=== PATIENT | female | born 2000 | race African-American/Black ===

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

== ENCOUNTER 2019-04-09 11:19 | Inpatient (IN) | payer OTHER ==
--- NOTE | 2019-04-09 11:57 | US ---
EXAMINATION TYPE: US OB >= 14 wk fetus DATE OF EXAM: 04/09/2019 COMPARISON: None CLINICAL HISTORY: no heart tones in office No heart tones at Dr's office TECHNIQUE: Transabdominal (TA) GESTATIONAL AGE / DATING Physician Established: (31 weeks/2 days) EDC: 06/09/2019 Dates by LMP: Unkown Dates by First Scan: No prior Dates by Current Scan: (22 weeks/1 days) EDC: 08/12/2019 SURVEY IUP: Single PLACENTA: Posterior PREVIA: No Previa LORETA: 4.1 cm Oligohydramnios CERVICAL LENGTH (transabdominal: norm > 3.0cm): 2.4 cm BIOMETRY PRESENTATION: Breech BPD: 3.9 cm 18 weeks / 0 days HC: 19.9 cm 22 weeks / 1 days AC: 16.7 cm 21 weeks / 5 days FL: 4.8 cm 26 weeks / 4 days ESTIMATED WEIGHT IN GRAMS: 580 grams ESTIMATED WEIGHT IN LBS/OZ: 1 lbs. 4 oz. WEIGHT PERCENTAGE BASED ON ESTABLISHED DATES: 2% HC/AC: 1.19 Normal FL/AC: 29 Abnormal HEART RATE: No heart tones detected Demise IMPRESSION: No heart tones are identified correlate for demise.
[2019-04-09] MEDS ORDERED: LIDOCAINE 0.5% (PF) 5 MG/ML (50 ML SDV) SQ PRN (12:32)
[2019-04-09] MEDS ORDERED: TERBUTALINE 1 MG/ML VIAL SQ PRN (12:32)
[2019-04-09] MEDS ORDERED: OXYTOCIN 10 UNIT/ML 1 ML VIAL IM PRN (12:32)
[2019-04-09] MEDS ORDERED: CARBOPROST TROMETHAMINE 250 MCG/ML 1 ML AMP IM PRN (12:32)
[2019-04-09] MEDS ORDERED: METHYLERGONOVINE 0.2 MG/ML 1 ML AMP IM PRN (12:32)
--- NOTE | 2019-04-09 12:40 | P.HPOB ---
History of Present Illness H&P Date: 04/09/19 Chief Complaint: demise Criss is a 18-year-old at 31 weeks gestation based on a proximally 19 week ultrasound and actually she had an ultrasound earlier in [place] that said her due date was May 302018. She was seen in the office today for her normal visit. Prior to today she had not had any blood work done and otherwise she had voiced no significant complaints at her previous visit. Today I was unable to obtain cardiac activity with the Doppler and then she notified me that she had not felt the baby move in at least a week but did not call or notify any of our office, labor and delivery, or Her family. I did do an ultrasound verifying no cardiac activity and sent to labor and delivery where an official ultrasound was done verifying demise. Baby is in breech presentation at this time with very low fluid. She seems at least relatively understanding of the current circumstances her family is understandably upset at what is going on at this moment. She and I have talked at length about what options we have whether to do a laminaria inserted induction the morning or to initiate Cytotec induction versus potentially doing section, her family is very insistent that she have a section but I did warn him that there is a good chance we would have to do a vertical incision on the uterus or classical incision which would require her to have section from this point forward and will increase her complication risks. It is unclear to me what happened and why she had a demise. I reviewed the ultrasound from February 17 which had her dates essentially correct and a good amniotic fluid volume. She was seen on March 06 for normal visit at that time heart rate was in the 130s and she her uterus was measuring approximately 25 weeks' size which is consistent with her 26 week visit. At that time she voices no concerns or complaints and was feeling well. We will do a urine drug screen as a precaution to make sure that it that is normal as well as draw all of her labs are not previously been done to see if there are some other reason why we may have to this finding. All questions are answered for her at this time. On physical exam vital signs are stable and afebrile. Heart is regular, lungs are Clear. Abdomen is soft uterus is small there is no contractions or pain within her uterus. Cervix is examined it is closed thick and high. Assessment demise at approximately 30 weeks. Plan likely induction of labor but there is still a possibility that we will need to do a section to deliver the baby. Past Medical History Past Medical History: No Reported History History of Any Multi-Drug Resistant Organisms: None Reported Past Surgical History: No Surgical Hx Reported Smoking Status: Never smoker Medications and Allergies Home Medications Medication Instructions Recorded Confirmed Type Vitamin C/Biotin [Hair, Skin and 1 tab PO DAILY 05/29/18 05/29/18 History Nails] Allergies Allergy/AdvReac Type Severity Reaction Status Date / Time No Known Allergies Allergy Verified 05/29/18 10:13 Exam Osteopathic Statement: *. No significant issues noted on an osteopathic structural exam other than those noted in the History and Physical/Consult. Intake and Output 04/08/19 04/09/19 04/09/19 22:59 06:59 14:59 Other: Weight 70.307 kg
[2019-04-09] MEDS: LACTATED RINGERS 1,000 ML IV SCH ×2 (13:12→21:16)
[2019-04-09] MEDS: MISOPROSTOL 25 MCG TAB PO SCH ×2 (13:12→17:07)
[2019-04-09] MEDS: AMPICILLIN 1,000 MG in SODIUM CHLORIDE 0.9% 50 ML IVPB SCH ×3 (13:12→21:15)
[2019-04-09 13:21] LABS: Basophils # (A) 0.1 k/uL (0-0.2); Basophils % (A) 1 %; Eosinophils # (A) 0.2 k/uL (0-0.7); Eosinophils % (A) 2 %; HCT 37.6 % (34.0-46.0); HGB 12.3 gm/dL (11.4-16.0); Lymphocytes # (A) 1.5 k/uL (1.0-4.8); Lymphocytes % (A) 16 %; MCH 30.9 pg (25.0-35.0); MCHC 32.6 g/dL (31.0-37.0); MCV 94.7 fL (80.0-100.0); Mean Platelet Volume 7.5; Monocytes # (A) 0.4 k/uL (0-1.0); Monocytes % (A) 4 %; Neutrophils # (A) 7.5 k/uL (1.3-7.7); Neutrophils % (A) 76 %; Platelet Count 280 k/uL (150-450); RBC 3.97 m/uL (3.80-5.40); RDW 13.6 % (11.5-15.5); WBC 9.9 k/uL (4.0-11.0)
[2019-04-09 13:24] LABS: Appearance,Urine Clear (Clear); Bilirubin,Urine Negative (Negative); Blood,Urine Negative (Negative); Color,Urine Yellow; Glucose,Urine (UA) Negative (Negative); Ketones,Urine Negative (Negative); Leukocyte Esterase,Urine Negative (Negative); Nitrite,Urine Negative (Negative); Protein,Urine Trace (Negative); Specific Gravity,Urine 1.029 (1.001-1.035); Urobilinogen,Urine <2.0 mg/dL (<2.0)
[2019-04-09 13:38] LABS: Amphetamine Screen,Urine Not Detected (NotDetected); Barbiturate Screen,Urine Not Detected (NotDetected); Benzodiazepines Screen,Urine Not Detected (NotDetected); Cocaine Screen,Urine Not Detected (NotDetected); Methadone Screen, Urine Not Detected (NotDetected); Opiate Screen,Urine Not Detected (NotDetected); Oxycodone Screen, Urine Not Detected (NotDetected); Phencyclidine Screen,Urine Not Detected (NotDetected); Tricyclic Antidepressant,Urine Not Detected (NotDetected); Urn Cannabinoid Scrn Not Detected (NotDetected)
[2019-04-09 14:15] VITALS: BMI 24.3
--- NOTE | 2019-04-09 16:22 | P.PN ---
Progress Note - Text Progress Note Date: 04/09/19 Criss seen and evaluated overall she is doing well considering the circumstances. She is feeling some slight cramping but nothing more this time she is due for another dose of Cytotec in about 1 hour. We will sign out to Dr. Arias for the evening.
--- NOTE | 2019-04-09 21:19 | P.PN ---
Progress Note - Text Progress Note Date: 04/09/19 I was called to speak with the family in regards to questions for delivery. Apparently patient's family members are requesting delivery by section at this time. Please see Dr. Medina's history and physical and progress note on his admission earlier today. Patient is approximately 30 weeks by previous dating ultrasounds however this fetus is measuring only 22 weeks' size on today's ultrasound, with a demise. I explained to the patient and the family the significant risks of doing a hysterotomy for delivery including problems with future pregnancies, notwithstanding the risk of surgery itself. Certainly it would be better for the patient to proceed with a induction of labor and vaginal delivery. They had questions as to if the patient was in any danger at this time and I reassured them that there is no evidence of infection or maternal compromise. Patient's white blood cell count was normal and she is afebrile. I am going to send some coagulation factors and a repeat CBC for tomorrow morning. Since the management plan has already been set place between the patient and Dr. Medina I advised her at this time to stop the induction if this is not what she wants to do and rest this evening and she can rediscuss delivery options with him tomorrow. Patient's family and the patient herself understand. The patient has requested to stop the induction at this time. They have requested a repeat ultrasound to double check that there is actually a demise and I did order this for tomorrow morning. I will allow the patient to eat up until midnight. We will continue the antibiotics as ordered. I believe I answered all the patient's questions to the best of my ability and they seemed to understand the clinical situation.
[2019-04-10] MEDS: AMPICILLIN 1,000 MG in SODIUM CHLORIDE 0.9% 50 ML IVPB SCH ×3 (00:59→08:53)
[2019-04-10 06:12] LABS: Basophils # (A) 0.1 k/uL (0-0.2); Basophils % (A) 1 %; Eosinophils # (A) 0.3 k/uL (0-0.7); Eosinophils % (A) 3 %; HGB 11.2 gm/dL (11.4-16.0); Lymphocytes # (A) 1.7 k/uL (1.0-4.8); Lymphocytes % (A) 19 %; MCHC 33.8 g/dL (31.0-37.0); MCV 91.7 fL (80.0-100.0); Mean Platelet Volume 7.7; Monocytes # (A) 0.6 k/uL (0-1.0); Monocytes % (A) 6 %; Neutrophils # (A) 6.3 k/uL (1.3-7.7); Neutrophils % (A) 69 %; Platelet Count 239 k/uL (150-450); RDW 13.3 % (11.5-15.5); WBC 9.1 k/uL (4.0-11.0)
[2019-04-10 06:20] LABS: INR 0.9 (<1.2); Partial Thromboplastin Time 22.5 sec (22.0-30.0); Prothrombin Time 9.5 sec (9.0-12.0)
--- NOTE | 2019-04-10 07:39 | US ---
EXAMINATION TYPE: US OB limited DATE OF EXAM: 04/10/2019 COMPARISON: 04/09/2019 CLINICAL HISTORY: 18-year-old female Reconfirm demise EXAM PERFORMED: Transabdominal (TA) Findings: HEART RATE: No heart tones detected by multiple attempts with color and power doppler. Reconfirmed demise IMPRESSION: Color and power Doppler utilized to assess for heart tones. No heart tones detected. demise is confirmed.
--- NOTE | 2019-04-10 09:36 | P.PN ---
Progress Note - Text Progress Note Date: 04/10/19 Criss seen and evaluated this morning. She not have much in the way of contractions or cramping yesterday with oral Cytotec. reviewed from last night's events. After another discussion with her we are planning to continue to move forward with attempt at vaginal delivery due to increased risk for classical if she were to need a section. Due to the fact that she not have much in with contractions we'll avoid and allow her to have clear liquid breakfast and then changed to nothing by mouth again once we started the Cytotec. We'll change the Cytotec to vaginally and increase the dose as it appears that that her uterus and size of fetus may be more district representative of a less than 28 week since she had no real response to the initial Cytotec. We'll follow hospital protocol on Cytotec dosing. Other questions are answered for her at this time and she is otherwise stable at this time. Vital signs are stable and she is afebrile. All questions were answered for her at this time and her family.
[2019-04-10] MEDS: MISOPROSTOL 200 MCG TAB VAGINAL SCH ×3 (10:20→18:31)
[2019-04-10] MEDS ORDERED: MISOPROSTOL 200 MCG TAB VAGINAL SCH (12:00)
[2019-04-10] MEDS: LACTATED RINGERS 1,000 ML IV SCH ×3 (12:30→22:45)
[2019-04-10 21:51] VITALS: RESP 15
[2019-04-10] MEDS ORDERED: ACETAMINOPHEN TAB 325 MG TAB PO PRN (22:00)
[2019-04-10] MEDS ORDERED: SIMETHICONE 80 MG CHEWABLE PO PRN (22:00)
[2019-04-10] MEDS ORDERED: diphenhydrAMINE 50 MG CAP PO PRN (22:00)
[2019-04-10] MEDS ORDERED: ZOLPIDEM 5 MG TAB PO PRN (22:00)
[2019-04-10] MEDS ORDERED: WITCH HAZEL 1 EACH MED..PAD TOPICAL PRN (22:00)
[2019-04-10] MEDS ORDERED: HYDROCORTISONE 2.5% RECTAL CREAM 30 GM TUBE RECTAL PRN (22:00)
[2019-04-10] MEDS ORDERED: IBUPROFEN 600 MG TAB PO PRN (22:00)
[2019-04-10] MEDS ORDERED: LANOLIN CREAM 5 GM TUBE TOPICAL PRN (22:00)
[2019-04-10] MEDS ORDERED: BENZOCAINE/MENTHOL SPRAY 1 GM/SPRAY AEROSOL TOPICAL PRN (22:00)
[2019-04-10] MEDS ORDERED: diphenhydrAMINE 50 MG/ML 1 ML VIAL IVP PRN ×2 (22:00)
[2019-04-10] MEDS ORDERED: OXYTOCIN 20 UNITS/1000 ML NS 1,000 ML IV SCH (22:00)
[2019-04-10] MEDS ORDERED: diphenhydrAMINE 25 MG CAP PO PRN (22:00)
[2019-04-11 07:10] LABS: Basophils # (A) 0.1 k/uL (0-0.2); Basophils % (A) 1 %; Eosinophils # (A) 0.1 k/uL (0-0.7); Eosinophils % (A) 1 %; HGB 10.6 gm/dL (11.4-16.0); Lymphocytes # (A) 1.5 k/uL (1.0-4.8); Lymphocytes % (A) 13 %; MCH 30.3 pg (25.0-35.0); MCHC 32.9 g/dL (31.0-37.0); MCV 92.1 fL (80.0-100.0); Mean Platelet Volume 7.7; Monocytes # (A) 0.5 k/uL (0-1.0); Monocytes % (A) 5 %; Neutrophils % (A) 79 %; Platelet Count 222 k/uL (150-450); RBC 3.48 m/uL (3.80-5.40); RDW 13.7 % (11.5-15.5); WBC 11.5 k/uL (4.0-11.0)
[2019-04-11] MEDS ORDERED: SENNOSIDES-DOCUSATE SODIUM 1 EACH TAB PO SCH (08:00)
--- NOTE | 2019-04-11 08:21 | P.DS ---
Providers Date of admission: 04/09/19 12:33 Expected date of discharge: 04/11/19 Attending physician: Siddharth Medina Primary care physician: Stated None Hospital Course: Criss seen and evaluated. She was seen last evening by myself at approximately 5:00 beginning Cramping and contractions from the Cytotec, and ultimately she delivered a nonviable baby at approximately 945 last night with passage of placenta as well Dr. Hernandez was on-call. No bleeding was noted following the delivery in she was stable through the night. In seeing her this morning she is requesting discharge home. Her vital signs are stable and afebrile. Heart regular, lungs clear, extremities without pain. She has a minimal elevation of white blood cell count 11.5 but received 24 hours of IV antibiotics during the initial day of induction. No other signs or symptoms of infection. She is aware to call for any high temperatures, heavy bleeding, or severe pain. She will follow up with me in approximately 1-2 weeks for reevaluation and at that time pathology should be back on the demise. All the questions are answered for her at this time. Her heart is regular, lungs are clear abdomen soft positive bowel sounds are noted and her lochia is currently reported light. Assessment post heart and day 1 from a miscarriage delivery plan as above. Patient Condition at Discharge: Good Plan - Discharge Summary New Discharge Prescriptions: No Action Vitamin C/Biotin [Hair, Skin and Nails] 1 tab PO DAILY Discharge Medication List Vitamin C/Biotin [Hair, Skin and Nails] 1 tab PO DAILY 05/29/18 [History]
[2019-04-11 08:32] VITALS: BP 93/48; PULSE 72; TEMP 97.8
== END 2019-04-11 11:40 | disposition home or self-care (01) | DRG 807 ==
LOC: FBPOP 11:19 → 4FBP 12:33
PROVIDERS: ADMIT Obstetrics & Gynecology; ATTEND Obstetrics & Gynecology
PROC: 3E0P7VZ Introduction of Hormone into Female Reproductive, Via Natural or Artificial Opening (ICD-10-PCS; principal; 2019-04-09)
PROC: 10E0XZZ Delivery of Products of Conception, External Approach (ICD-10-PCS; principal; 2019-04-09)
DX: O36.4XX0 Maternal care for intrauterine death, not applicable or unspecified (principal); Z37.1 Single stillbirth; O32.1XX0 Maternal care for breech presentation, not applicable or unspecified; Z3A.31 31 weeks gestation of pregnancy
CPT/HCPCS: 76805; 76815; 80306; 81003; 82947; 85025; 85384; 85610; 85730; 86762; 86780; 86850; 86900; 86901; 87340

== ENCOUNTER 2019-12-08 11:36 | Inpatient (IN) | payer MEDICAID, OTHER ==
--- NOTE | 2019-12-08 11:56 | ED ---
General Adult HPI - General Chief complaint: Psychiatric Symptoms Stated complaint: mental health Time Seen by Provider: 12/08/19 11:42 Source: patient, RN notes reviewed, old records reviewed Mode of arrival: ambulatory Limitations: no limitations - History of Present Illness Initial comments: 19-year-old female brought from the psychiatrist's office for mental health evaluation. Review the medical record reveals this patient has auditory hallucination, she has religiously preoccupied, she's had thoughts of harming herself and others. She will answer simple questions at the time my evaluation but is reluctant to give a full history. She denies pain complaints. She denies suicide attempt or self-harm. - Related Data Home Medications Medication Instructions Recorded Confirmed No Known Home Medications 12/08/19 12/08/19 Allergies Allergy/AdvReac Type Severity Reaction Status Date / Time No Known Allergies Allergy Verified 12/08/19 12:46 Review of Systems ROS Statement: Those systems with pertinent positive or pertinent negative responses have been documented in the HPI. ROS Other: All systems not noted in ROS Statement are negative. Past Medical History Past Medical History: No Reported History History of Any Multi-Drug Resistant Organisms: None Reported Past Surgical History: No Surgical Hx Reported Past Anesthesia/Blood Transfusion Reactions: No Reported Reaction Past Psychological History: No Psychological Hx Reported Smoking Status: Never smoker Past Alcohol Use History: None Reported Past Drug Use History: Marijuana - Past Family History Mother History Unknown: Yes General Exam Limitations: no limitations General appearance: alert, in no apparent distress Head exam: Present: atraumatic, normocephalic Eye exam: Present: normal appearance, PERRL ENT exam: Present: normal exam Neck exam: Present: normal inspection. Absent: tenderness, meningismus Respiratory exam: Present: normal lung sounds bilaterally. Absent: respiratory distress, wheezes Cardiovascular Exam: Present: regular rate, normal rhythm GI/Abdominal exam: Present: soft. Absent: distended, tenderness Extremities exam: Present: normal inspection, full ROM Neurological exam: Present: alert, oriented X3, CN II-XII intact. Absent: motor sensory deficit Psychiatric exam: Present: flat affect, suicidal ideation Skin exam: Present: warm, dry, intact. Absent: cyanosis, diaphoretic Course Vital Signs 12/08/19 11:38 Temperature 98.2 F Pulse Rate 80 Respiratory 16 Rate Blood Pressure 144/90 O2 Sat by Pulse 99 Oximetry Medical Decision Making - Medical Decision Making 19-year-old female presenting with altered sensation, suicidal ideation. Patient medically cleared, evaluated by EPS, will be admitted for further psychiatric evaluation and treatment. She will be admitted to this institution. - Lab Data Lab Results 12/08/19 Range/Units 12:17 Urine Opiates Screen Not Detected (NotDetected) Ur Oxycodone Screen Not Detected (NotDetected) Urine Methadone Screen Not Detected (NotDetected) Ur Propoxyphene Screen Not Detected (NotDetected) Ur Barbiturates Screen Not Detected (NotDetected) U Tricyclic Antidepress Not Detected (NotDetected) Ur Phencyclidine Scrn Not Detected (NotDetected) Ur Amphetamines Screen Not Detected (NotDetected) U Methamphetamines Scrn Not Detected (NotDetected) U Benzodiazepines Scrn Not Detected (NotDetected) Urine Cocaine Screen Not Detected (NotDetected) U Marijuana (THC) Screen Detected H (NotDetected) Disposition Clinical Impression: Depression, Suicidal ideation, Psychosis, Acute psychosis Disposition: ADMITTED IP TO THIS [facility] Condition: Stable Is patient prescribed a controlled substance at d/c from ED?: No Referrals: Manjinder Aponte MD [Primary Care Provider] - 1-2 days Decision to Admit Reason: Admit from EC Decision Date: 12/08/19 Decision Time: 16:32
[2019-12-08 12:41] LABS: Amphetamine Screen,Urine Not Detected (NotDetected); Barbiturate Screen,Urine Not Detected (NotDetected); Benzodiazepines Screen,Urine Not Detected (NotDetected); Cocaine Screen,Urine Not Detected (NotDetected); Methadone Screen, Urine Not Detected (NotDetected); Opiate Screen,Urine Not Detected (NotDetected); Oxycodone Screen, Urine Not Detected (NotDetected); Phencyclidine Screen,Urine Not Detected (NotDetected); Tricyclic Antidepressant,Urine Not Detected (NotDetected); Urn Cannabinoid Scrn Detected (NotDetected)
[2019-12-08] MEDS ORDERED: ZIPRASIDONE 20 MG VIAL IM PRN (18:53)
[2019-12-08] MEDS ORDERED: LORazepam 1 MG TAB PO PRN (18:53)
[2019-12-08] MEDS ORDERED: MAG HYDROX/AL HYDROX/SIMETH 30 ML CUP PO PRN (18:53)
[2019-12-08] MEDS ORDERED: ACETAMINOPHEN TAB 325 MG TAB PO PRN (18:53)
[2019-12-08] MEDS ORDERED: MAGNESIUM HYDROXIDE 2,400 MG/10 ML CUP PO PRN (18:53)
[2019-12-08] MEDS ORDERED: LORazepam 2 MG/ML INJ IM PRN (18:55)
[2019-12-09 08:26] LABS: ALT 8 U/L (4-34); AST 18 U/L (14-36); African American GFR (CKD) >90 (>60 ml/min/1.73 sqM); Albumin 4.3 g/dL (3.5-5.0); Alkaline Phosphatase 60 U/L (38-126); Anion Gap 8 mmol/L; Blood Urea Nitrogen 11 mg/dL (7-17); Calcium 9.6 mg/dL (8.4-10.2); Carbon Dioxide 27 mmol/L (22-30); Chloride 105 mmol/L (98-107); Cholesterol 200 mg/dL (<200); Glucose 91 mg/dL (74-99); HDL Cholesterol 49 mg/dL (40-60); LDL Cholesterol,Calculated 141 mg/dL (0-99); Non-African American GFR(CKD) >90 (>60 ml/min/1.73 sqM); Potassium 4.2 mmol/L (3.5-5.1); Sodium 140 mmol/L (137-145); Total Bilirubin 0.6 mg/dL (0.2-1.3); Total Protein 7.3 g/dL (6.3-8.2); Triglycerides 51 mg/dL (<150)
[2019-12-09 08:29] LABS: Basophils % (A) 0 %; Eosinophils # (A) 0.2 k/uL (0-0.7); Eosinophils % (A) 2 %; HCT 38.7 % (34.0-46.0); HGB 12.4 gm/dL (11.4-16.0); Lymphocytes # (A) 1.6 k/uL (1.0-4.8); Lymphocytes % (A) 19 %; MCH 29.1 pg (25.0-35.0); MCHC 32.2 g/dL (31.0-37.0); MCV 90.3 fL (80.0-100.0); Mean Platelet Volume 7.7; Monocytes # (A) 0.4 k/uL (0-1.0); Monocytes % (A) 5 %; Neutrophils # (A) 6.1 k/uL (1.3-7.7); Neutrophils % (A) 72 %; Platelet Count 283 k/uL (150-450); RBC 4.28 m/uL (3.80-5.40); RDW 13.2 % (11.5-15.5); WBC 8.5 k/uL (4.0-11.0)
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
[2019-12-09] MEDS: ARIPiprazole 5 MG TAB PO SCH (10:04)
--- NOTE | 2019-12-09 12:54 | CONS ---
CONSULTATION CHIEF COMPLAINT: Major depression. HISTORY OF PRESENT ILLNESS: This is the first known admission for this 19-year-old quiet and pleasant female. She has been coming to the office for some time with a history of depression. She has been seen by our social worker palliative care. She is very reluctant to discuss her issues or problems. She has counselor and apparently after seeing her counselor on the day of admission, it was recommended that she go to the hospital to be admitted. She denies having been suicidal. REVIEW OF SYSTEMS: She has had no headaches, change in vision or hearing, chest pain, cough, hemoptysis, hypertension, heart disease, abdominal pain, vomiting, nausea, diarrhea, renal failure, diabetes, etc. Past medical history, family history and personal and social history reveal she is not allergic to any medication. She was last seen on the 17 of November. She was given Bactrim DS and Flagyl, but is otherwise not known to be on any medication. She does not drink and she does not smoke. PHYSICAL EXAMINATION: Blood pressure 110/80, pulse of 80, respirations of 16. She is afebrile. GENERAL: She appeared to be slender, well developed, well nourished, in no acute distress. Skin color is normal. Skin is warm and dry. Lymph nodes not enlarged. Head, ears, eyes, nose, mouth, and throat were normal. Neck veins are not distended. Thyroid is not enlarged. Chest is clear. Cardiac exam is normal. Abdomen is soft, nontender. Extremities are normal. IMPRESSION: Major depression. RECOMMENDATIONS: None. She has no medical issues that I am aware of. MMODL / IJN: [id number] /
[2019-12-09 19:18] LABS: Hemoglobin A1C 5.1 % (4.0-6.0)
[2019-12-10] MEDS: ARIPiprazole 5 MG TAB PO SCH ×2 (08:36→12:14)
--- NOTE | 2019-12-10 09:35 | P.PN ---
Progress Note - Text Interval history: The patient is found in her room she follows me to an interview room. She indicates that she slept last night. She states that she ate breakfast this morning but that is verified. Again she presented with concerns that food was being tampered with. She states that she did not attend groups she does not appear to be motivated to attend groups today. She's had no phone contact with family per her report. Social work notes reveal that the patient did sign a consent allowing us to speak with her grandmother. The patient has no questions other than wanting to know when she can be discharged. She states she doesn't need to be here and she no longer will comply with medication. She did take the Abilify yesterday but refused it this morning. We discussed the need to involve probate Court if she is refusing treatment and she indicates she would prefer that route to address her concerns. Mental status exam: The patient is a thin female appearing her stated age. She is dressed in her own clothing. Eye contact is intermittent. She frequently looks about the room. She maintains a blunted affect except for a few times when she demonstrates odd smiling. This occurs when I reference the hallucination she described yesterday. She reports having no symptoms today. She does again appear distractible. She demonstrates no verbal or physical aggressiveness she demonstrates no involuntary repetitive movements. I presume that her hallucinations and delusional thoughts continue. Insight and judgment are impaired. She reports no thoughts of harming herself or others. Again she's not available historian. Plan: The patient continues to demonstrate symptoms of psychosis. She indicates that she will not comply with the Abilify. We will have to petition the court for a treatment order. We will attempt to contact the patient's grandmother for collateral information. Vital signs reviewed. She is encouraged to participate fully in the milieu.
[2019-12-11] MEDS: ARIPiprazole 5 MG TAB PO SCH (09:00)
[2019-12-11] MEDS ORDERED: ARIPiprazole 5 MG TAB PO ONE (10:02)
--- NOTE | 2019-12-11 10:09 | P.PN ---
Progress Note - Text Interval history: The patient is found in her room seated on the floor reading the Bible next to the window. She follows me to an interview room. She indicates her mood is okay. She states that she has been picking at her meals and is probably eating about 5% of them. She continues to have concerns that the food may be contaminated. She describes having some nausea and that has been present since October. She indicates that she could not be at this time as she is currently on her menstrual cycle. She reports last night she heard a loud voice that startled her she was still awake. When asked what it said she states "I can't remember". It was distressing. We reviewed symptoms she describes her outpatient therapist. She indicates that she believes in God but she has been visited by evil or "wicked spirits". She states that they have been putting thoughts in her head that she should've sacrificed herself or her baby. She believes that God controls everything and this must be happening to test her but it is distressing. She states it is because of the thoughts that the wicked spirits have been putting in her head that she became hopeless and was thinking of killing herself. She admits that she has been guarded in discussing his symptoms because she thinks that it will prolong her stay in the hospital. Mental status exam: The patient is alert she is a thin female appearing her stated age she has adequate hygiene she is mildly disheveled she is dressed in her own clothing. Eye contact is infrequent she frequently looks down or about the room. There are still times when we speak that she will demonstrate some odd smiling but she will not discuss why she is having that reaction. She endorses some intermittent hallucinations but often states "I don't remember" when asked to describe the content. Today she finally described experiencing thoughts that she feels are being placed by evil spirits all under the control of God. She continues to feel that she is not safe and is being watched. She felt yesterday those thoughts were stronger. Insight and judgment are impaired. She continues to ask when she can be discharged lacking insight into her symptoms. She demonstrates no verbal or physical aggressiveness. She does not appear hypomanic or manic. Plan: The patient will continue on the Abilify we will titrate to 10 mg daily. We will watch her food intake and encourage hydration. She indicates she attended some group activities yesterday she is encouraged to more fully par ticipate. We will continue to involve her family in treatment and discharge planning as she will allow. Vital signs reviewed. She requires continued psychiatric hospitalization due to the acute nature of her symptoms. She will be scheduled to participate in a deferral conference.
[2019-12-11 14:40] LABS: Color,Urine Yellow
[2019-12-11 14:41] LABS: Appearance,Urine Clear (Clear); Bilirubin,Urine Negative (Negative); Blood,Urine Negative (Negative); Glucose,Urine (UA) Negative (Negative); Ketones,Urine Negative (Negative); Leukocyte Esterase,Urine Negative (Negative); Nitrite,Urine Negative (Negative); Protein,Urine Negative (Negative); Specific Gravity,Urine 1.005 (1.001-1.035); Urobilinogen,Urine <2.0 mg/dL (<2.0)
[2019-12-12] MEDS: ARIPiprazole 5 MG TAB PO SCH (08:41)
[2019-12-12] MEDS ORDERED: ONDANSETRON 4 MG TAB PO PRN (08:43)
--- NOTE | 2019-12-12 08:43 | P.PN ---
Progress Note - Text Interval history: The patient is found in the hallway she follows me to an interview room. She indicates she is okay but has been having "bad thoughts". She states that they are personal and does not wish to discuss them today. She continues to deny having hallucinations but again the spirits are putting thoughts in her head. She reports that she is eating poorly but it appears that she is eating approximately half of her meals. She describes an ongoing feeling of nausea since October. We offered to put Zofran in place as needed she states she doesn't want any other medication. She indicates she attended 2 groups yesterday she is encouraged to more fully attend. Social work notes reviewed. The patient's grandmother was contacted. Family plans to visit this weekend. Mental status exam: The patient is alert she is dressed in her own clothing hygiene grooming adequate. Eye contact is intermittent. She has no spontaneous speech she does provide answers. Speech is soft sometime she is difficult to hear and I have to ask her her statement. She is reporting no thoughts of harming herself or others however she makes it clear that she would like to be discharged and may be underreporting symptoms. She is endorsing no auditory or visual hallucinations but indicates that she is having "bad thoughts" which she would not describe that are being placed by an evil spirit. She demonstrates no verbal or physical aggressiveness. She demonstrates no involuntary repetitive movements. She is oriented to person place and date. She maintains a bland affect throughout the session. Plan: The patient will continue on the Abilify we will titrate to 15 mg daily. We will continue to monitor for symptoms of psychosis and her acute safety risk. We will look forward to getting more input from family as a visit over the weekend. Vital signs reviewed. She is encouraged to fully participate in the milieu she is encouraged to attend meals. Zofran will be provided as needed for nausea we will add ensure/boost to meals.
[2019-12-12] MEDS ORDERED: ARIPiprazole 10 MG TAB PO SCH (09:00)
[2019-12-13] MEDS: ARIPiprazole 15 MG TAB PO SCH (08:29)
--- NOTE | 2019-12-13 11:50 | P.PN ---
Progress Note - Text Interval history: The patient is found in the hallway she follows me to an interview room. She indicates that she still feels confused. She states she still having some troubling thoughts. She states lately the thoughts are "sexual in nature" and does not wish to discuss them further. She reports that she continues to feel watched or followed. There is some level of feeling unsafe still. Interestingly she asked questions about her medicines today which is new. She reports that she does feel little better but indicates she is not good with words and it's hard for her to describe. There is still some difficulty putting thoughts together as she describes it. She anticipates family will visit this evening. She has been sleeping. She indicates she continues to try to eat. Mental status exam: The patient is a thin female appearing her stated age she presents with adequate hygiene grooming. Eye contact is appropriate speech is fluent spontaneous nonpressured. She indicates her mood is a little better but has difficulty articulating why. She continues to endorse intrusive delusional thoughts. She reports no thoughts of harming herself as she feels safe in the hospital is reporting no homicidal ideation. She demonstrates no verbal or physical aggressiveness. She demonstrates some appropriate smiling during the session and in there appears to be episodes of smiling or laughter that don't fit the conversation. This is an infrequent phenomenon during interaction however. She demonstrates no involuntary repetitive movements. Insight and judgment still limited. Plan: We will continue the medication as written. We will monitor for safety. She is encouraged to fully participate in the milieu. We will await input from her family after they visit this weekend. We discussed therapeutic goals we need to accomplish prior to her discharge.
[2019-12-13 14:37] VITALS: BMI 20.9
[2019-12-14] MEDS: ARIPiprazole 15 MG TAB PO SCH (08:45)
--- NOTE | 2019-12-14 12:02 | P.PN ---
Progress Note - Text Interval history: The patient is found in her room she follows me to an interview room. She states that she was having a bad day yesterday. She continues to have some suicidal thoughts. She states she wonders if everything would be better if she killed herself. It does still seem that these thoughts are due to her psychosis. She states that she had a good visit with family last evening. She reports that she slept last night staff recorded she slept 5 hours. She states she is only eating a little however staff recorded that she is eating most of her meals and is using the supplement. Mental status exam: The patient is alert she's dresser own clothing hygiene grooming adequate. Eye contact is intermittent she maintains a bland affect she is soft-spoken. She has little spontaneous speech but will answer questions. She continues to appear distracted causing me to repeat questions a few times. She struggles with questions that are not very simple and straightforward. She demonstrates some odd smiling towards the end of the session. She reports no homicidal ideation intent or plan. She indicates having some suicidal thoughts but she states that she can keep herself safe here in the hospital. Insight and judgment limited. She demonstrated no involuntary repetitive movements. She demonstrates no verbal or physical aggressiveness. Plan: The patient will continue on the Abilify we will titrate to 20 mg daily starting tomorrow. She is encouraged to talk to staff whenever she has any suicidal thoughts. She is encouraged to attend groups. Vital signs reviewed. She requires continued psychiatric hospitalization
--- NOTE | 2019-12-15 09:29 | P.PN ---
Progress Note - Text Interval history: The patient is found in her room she follows me to an interview room. She reports having some difficulty sleeping last night I was called from melatonin order. She has used melatonin as an outpatient and found effective. Staff recorded she slept 5 hours. She indicates she is trying to eat better at meals. Her sister visited last evening. We reviewed her psychotropic medication. We increased the Abilify to 20 mg daily. She states that yesterday seem to be a little better than the day before. Yesterday she d idn't struggle with any suicidal thoughts but did this morning she states they were brief however. She states that she experienced an auditory hallucination telling her to hurt people but she states she does not want to do that and she was able to ignore that direction. Mental status exam: The patient is a thin female appearing her stated age she has adequate hygiene grooming she is dressed in her own clothing. Eye contact is intermittent. She is quiet and soft-spoken. She has more spontaneous speech today than usual. Affect is constricted to bland. She reports having a brief suicidal thought during breakfast but states that quickly resolved. She indicated she is having trouble thinking of positive things about life which we discussed yesterday. She reported having a nonspecific thought of hurting others but has no desire intent or plan of harming others and was able to push that thought away. She states in general she feels safe but there is still some paranoid thinking. She demonstrates no verbal or physical aggressiveness she demonstrates no involuntary movements. Insight and judgment limited. Plan: The patient will continue on the Abilify at 20 mg daily. Continue the melatonin. She is encouraged to use Zofran for nausea if needed. We will monitor her for safety and encourage full participation in the milieu. Vital signs reviewed. Social work will contact her family to gain their opinion of her current status versus none baseline. She requires continued psychiatric hospitalization.
[2019-12-15] MEDS: MELATONIN 5 MG TABLET PO SCH (20:52)
--- NOTE | 2019-12-16 09:36 | P.PN ---
Progress Note - Text Interval history: The patient is found in her room she follows me to an interview room. She indicates her mood is better. She did meet with her ip attorney and signed a deferral agreement. She states that she hasn't having any suicidal thoughts and didn't have any yesterday. She indicates she struggling with "sexual thoughts". Finally she disclosed some specifics and stated that at times she has been attracted to females. She feels conflicted because of her jain and "knows women are supposed to be with men". We discussed the importance of her discussing this further with an outpatient therapist to be comfortable with herself in terms of her sexuality and her jain. Mental status exam: The patient is alert she is dressed in her own clothing hygiene grooming are good. Eye contact is improved. Affect is brighter today she demonstrated some appropriate smiling. She initiated some spontaneous speech. Overall she indicates she is feeling better. She reports no suicidal ideation intent or plan no homicidal ideation intent or plan. She states that it's becoming easier to push away "bad thoughts". We spent some time trying to foster future oriented thinking and she was able to engage in the conversation. She names family members whom she finds supportive and whom she can turn to for support once discharged. She demonstrates no verbal or physical aggressiveness she demonstrates no involuntary repetitive movements. She is reporting no auditory or visual hallucinations. She feels that she is safe. She knows that bad things can happen to people but she doesn't feel that it would keep her trapped in her house once discharge. Plan: The patient will continue on her current psychotropic medication. We will monitor her for safety. It appears that she is demonstrating some clinical improvement based on today's evaluation. We will continue to encourage full participation in the milieu. Social work will touch base with her family to get their opinion on the patient's progress. We will continue discharge planning.
[2019-12-16] MEDS: MELATONIN 5 MG TABLET PO SCH (21:06)
--- NOTE | 2019-12-17 11:33 | P.PN ---
Progress Note - Text Interval history: The patient is found in group she follows me to an interview room. She indicates that her mood is improving. He states that she is feeling safe. She did have some "bad thoughts" but feels it's a little easier pushing those away. She continues to ask about discharge. She anticipates family will visit this evening. We will contact them following that visit we will arrange a support meeting subsequently . The patient did write some questions down she covered those during the session. They pertain to the use of Abilify and her discharge planning. Mental status exam: The patient is alert she is dressed in her own clothing hygiene grooming are adequate. Speech is fluent, more spontaneous. Affect is often constricted but there are times when she demonstrates appropriate smiling. Overall affect seems to be brightening during the course of the hospitalization. She is reporting no suicidal or homicidal ideation intent or plan. She reports no auditory or visual hallucinations or specific delusions. She indicates still having some bad thoughts but those are related to the "sexual thoughts" we discussed yesterday. Insight and judgment slowly improving. She is able to describe several examples of future oriented thinking. She demonstrates no verbal or physical aggressiveness she demonstrates no involuntary repetitive movements. Plan: The patient will continue on the Abilify is written we will monitor her for safety. If she sufficiently clinically improves she may be appropriate for discharge in the next 1-2 days. We will await input from her family. She is encouraged to continue participating in the milieu.
[2019-12-17] MEDS: MELATONIN 5 MG TABLET PO SCH (21:04)
--- NOTE | 2019-12-18 09:42 | P.PN ---
Progress Note - Text Interval history: The patient is found in her room she follows me to an interview room. She states that she had a good visit with her grandmother last evening. She has no questions or concerns regarding her medication today. She feels that her mood is improving. She did experience some auditory hallucinations last evening or noncommanding. She states at times able to echo what she is thinking. She is reporting no "bad thoughts". She is reporting no thoughts of self-harm. She does continue to think about activities she would like to participate in once discharged. Mental status exam: The patient is an alert eye contact is appropriate speech is fluent spontaneous nonpressured. Affect is appropriately brighter. She demon strates some appropriate smiling. Eye contact can be evasive at times. She reports that her moods improving she is reporting no suicidal or homicidal ideation intent or plan. She is endorsing some auditory hallucinations or noncommanding as noted above. She endorses no visual hallucinations. She is endorsing no "bad thoughts" as she has previously described them. Insight and judgment slowly improving. She demonstrates no verbal or physical aggressiveness she demonstrates no involuntary repetitive movements. Plan: The patient will continue on the Abilify we will monitor for another 24 h ours. If she demonstrates continued improvement we will discharge her tomorrow. We will anticipate having her grandmother, for support meeting prior to discharge. Vital signs reviewed. She is encouraged to continue participating in the milieu.
[2019-12-18] MEDS: MELATONIN 5 MG TABLET PO SCH (20:51)
[2019-12-19 06:39] VITALS: BP 103/56; PULSE 78; RESP 14; TEMP 98.4
--- NOTE | 2019-12-19 09:01 | P.DS ---
Providers Date of admission: 12/08/19 18:44 Expected date of discharge: 12/19/19 Attending physician: Tj Platt Consults: 12/08/19 18:53 Consult Physician Routine Consulting Provider: Manjinder Aponte Consult Reason/Comments: H&P and medical Do you want consulting provider notified?: Yes Primary care physician: Manjinder Aponte - Discharge Diagnosis(es) (1) Psychosis Current Visit: Yes Status: Acute Priority: High Hospital Course: Brief summary of admission note: This patient is a 19-year-old female who is admitted to the mental health unit through the emergency room from her outpatient counselor's office with symptoms of acute psychosis and suicidal ideation. The patient described having auditory hallucinations and had thoughts of harming herself or others. She was noted to be religiously preoccupied. She described having a decreased appetite she was worried that her food was being tampered with and could be poisoned. She described difficulty with sleep. For full details please refer to my psychiatric evaluation dated 12/09/2019. Summary of hospital course: The patient was admitted to the mental health unit in voluntarily. A second clinical certificate was completed. A deferral conference was held with her tax attorney and she signed the deferral agreement. To address her symptoms of psychosis we initiated Abilify and this was eventually titrated to 20 mg daily. She was refusing the medicine prior to the deferral conference. She has reported a progressive improvement of symptoms while here. She has noted that she is much more able to control her thoughts she reports a resolution of any suicidal ideation. During the course of the hospitalization she disclosed that the bad thoughts that she was having were sexual in nature towards other females. She had stated that she has been attracted to females in the past but this does not fit her quaker beliefs. We discussed this further and it is also something to continue addressing an outpatient therapy. The patient's grandmother was involved in the patient's care throughout the hospitalization. The patient's grandmother has visited the patient and will be involved in a support meeting today. Her grandmother has provided feedback to the patient appears to be doing better and she is comfortable with the patient returning home. The patient has been compliant with medication she has demonstrated no aggressive behavior. She is able to generate future oriented thinking. Mental status exam: The patient is alert she is dressed in her own clothing eye contact is improved affect is brighter. She is able to demonstrate some appropriate smiling during conversation. She indicates her mood is better. She reports no hopelessness thinking she is reporting no suicidal ideation intent or plan. She is reporting no homicidal ideation intent or plan. She is endorsing no current auditory hallucinations specifically she is experiencing no command auditory hallucinations. She is endorsing no visual hallucinations. She is reporting no "bad thoughts". She demonstrates no verbal or physical aggressiveness she demonstrates no involuntary repetitive movements. Insight and judgment have improved. She is oriented to person place and date. Impressions 1. Psychosis unspecified, rule out schizophrenia versus schizoaffective disorder, rule out major depressive disorder severe with psychosis rule out cannabis use disorder Plan: The patient will be discharged mental health unit today she will return residing with her grandmother. She will continue on Abilify 20 mg daily. She is instructed to abstain from any use of alcohol marijuana or any illicit drugs. We discussed that these can precipitate symptoms of psychosis an elevator safety risk. She will follow up with [facility] for outpatient mental health services. She is on a deferral agreement she is reminded of the consequences if she does not adhere to that agreement. At this time there is no imminent safety risks she is appropriate for continued care as an outpatient. She is instructed to return to the hospital with any acute safety concerns. Patient Condition at Discharge: Stable Plan - Discharge Summary Discharge Rx Participant: No New Discharge Prescriptions: New ARIPiprazole [Abilify] 20 mg PO DAILY #30 tab Melatonin 5 mg PO HS #30 tablet Discharge Medication List ARIPiprazole [Abilify] 20 mg PO DAILY #30 tab 12/19/19 [Rx] Melatonin 5 mg PO HS #30 tablet 12/19/19 [Rx] Follow up Appointment(s)/Referral(s): Manjinder Aponte MD [Primary Care Provider] - 1-2 days Patient Instructions/Handouts: Mood Disorders (DC), Psychotic Disorder (DC) Activity/Diet/Wound Care/Special Instructions: Activity and diet as tolerated. Avoid the use of street drugs and alcohol. Take all medications as prescribed. When you are in need of refills on your medications please contact your medical provider and/or outpatient psychiatrist to have this done. Please go to scheduled outpatient appointment for aftercare treatment. If symptoms return or become worse, call the crisis line at and/or go to the nearest emergency room for evaluation.
== END 2019-12-19 11:12 | disposition home or self-care (01) | DRG 885 ==
LOC: EC 11:36 → 3MHU 18:44
PROVIDERS: ADMIT Psychiatry & Neurology Psychiatry; ATTEND Psychiatry & Neurology Psychiatry
DX: F29 Unspecified psychosis not due to a substance or known physiological condition (principal); R45.851 Suicidal ideations; Z79.899 Other long term (current) drug therapy; Z91.410 Personal history of adult physical and sexual abuse; Z91.411 Personal history of adult psychological abuse; Z56.0 Unemployment, unspecified; F12.10 Cannabis abuse, uncomplicated
CPT/HCPCS: 80053; 80061; 80306; 81003; 81025; 82075; 83036; 84443; 85025; 99285

== ENCOUNTER 2023-04-10 09:51 | Outpatient (CLI) | payer OTHER ==
[2023-04-10 11:33] VITALS: BP 113/64; PULSE 88; RESP 16; TEMP 97
--- NOTE | 2023-04-16 08:38 | P.MSEPDOC ---
Presenting Problems - Arrival Data Date of Arrival on Unit: 04/10/23 Time of Arrival on Unit: 09:52 Mode of Transport: Ambulatory - Complaint OB-Reason for Admission/Chief Complaint: Possible Onset of Labor Comment: Pt states pressure in pelvis and abdominal tightening Medical History - Information : 2 Para: 1 Term: 0 : 1 Abortions: Spontaneous or Elective: 0 Number of Living Children: 0 - Gestational Age Gestational Age by JONATHAN (wks/days): 39 Weeks and 0 Days - History Comment: Hx of w demise Review of Systems - Review of Systems Constitutional: No problems Breast: No problems ENT: No problems Cardiovascular: No problems Respiratory: No problems Gastrointestinal: No problems Genitourinary: No problems Musculoskeletal: No problems Neurological: No problems Skin: No problems Vital Signs - Temperature Temperature: 97 F Temperature Source: Temporal Artery Scan - Pulse Right Sitting Brachial Pulse Rate: 88 Pulse Assessment Method: Automatic Cuff - Respirations Respiratory Rate: 16 Oxygen Delivery Method: Room Air O2 Sat by Pulse Oximetry: 99 - Blood Pressure Right Arm Sitting Blood Pressure: 113/64 Blood Pressure Mean: 80 Blood Pressure Source: Automatic Cuff Medical Screen Scoring - Cervical Exam Dilation (cm): 1 Effacement (%): 50 Station: -3 Membranes: Intact - Uterine Contractions Frequency From (mins): 2 Frequency To (mins): 4 Duration From (seconds): 50 Duration To (seconds): 70 Intensity: Mild Resting: Soft to palpation - Assessment - Baby A Baseline FHR: 150 Heart Rate - NICHD Category: Category I (Normal) NST: Reactive Physician Notification - Physician Notified Physician Notified Date: 04/10/23 Physician Notified Time: 11:10 Physician: Dunia Card Order Received: Yes - Notification Comment Comment: 1055: Ben c\\Dr. Card, advsd of pts arrival to triage, limited information/poor. historian, questionable care, , 31wk demise in 2019. 39 0/7 per pts report. Cat 1 NST, contrx q2-4min, mild. Pt arrives c\\pressure and tightening, nonpainful. Records not rec'd from [facility]. Order rec'd to perform SVE. 1110: Ben c\\Dr Card, advsd of SVE as well as pts PPD screen of 14 c\\a +thoughts. of harm "sometimes", pt denies current thoughts, denies abuse, states safe environment. with positive support system. Order rec'd to discharge pt home c\\orders to follow up c\\[facility]. KIANNA as well as triage discharge instructions. Maternal Triage Index - Maternal Triage Index Presenting for scheduled procedure w/no complaint: No - Stat/Priority 1 Stat Priority 1: No - Urgent/Priority 2 Urgent Priority 2: No - Prompt/Priority 3 Prompt Priority 3: Yes Criteria Met for Priority 3: Contractions Disposition - Disposition OB Disposition: Discharge to home, Written follow up instructions reviewed Discharge Date: 04/10/23 Discharge Time: 11:20 I agree with the RN Medical Screening Exam: Yes Case reviewed; plan agreed upon as documented in EMR&OBIX.: Yes Diagnosis: rule out labor
== END 2023-04-10 11:20 | disposition home or self-care (01) ==
LOC: FBPOP 09:51
PROVIDERS: ATTEND Obstetrics & Gynecology
DX: Z03.79 Encounter for other suspected maternal and fetal conditions ruled out (principal); Z3A.39 39 weeks gestation of pregnancy
CPT/HCPCS: 59025; G0463; 99213

== ENCOUNTER 2023-04-17 15:44 | Outpatient (CLI) | payer OTHER ==
[2023-04-17 17:14] LABS: Anisocytosis Slight; Basophils % (A) 1 %; Eosinophils # (A) 0.2 k/uL (0-0.7); Eosinophils % (A) 2 %; HCT 33.3 % (34.0-46.0); HGB 10.8 gm/dL (11.4-16.0); Lymphocytes # (A) 1.1 k/uL (1.0-4.8); Lymphocytes % (A) 12 %; MCH 29.2 pg (25.0-35.0); MCHC 32.5 g/dL (31.0-37.0); MCV 89.8 fL (80.0-100.0); Mean Platelet Volume 8.2; Monocytes # (A) 0.5 k/uL (0-1.0); Monocytes % (A) 6 %; Neutrophils # (A) 6.9 k/uL (1.3-7.7); Neutrophils % (A) 77 %; Platelet Count 239 k/uL (150-450); RDW 18.8 % (11.5-15.5); WBC 8.9 k/uL (3.8-10.6)
[2023-04-17 17:26] VITALS: BP 117/73; PULSE 107; RESP 18; TEMP 97.2
--- NOTE | 2023-05-03 10:47 | P.MSEPDOC ---
Presenting Problems - Arrival Data Date of Arrival on Unit: 04/17/23 Time of Arrival on Unit: 15:44 Mode of Transport: Ambulatory - Complaint OB-Reason for Admission/Chief Complaint: Other Comment: Pt states she "would like to get baby checked out, due today" Medical History - Information : 2 Para: 1 Term: 0 : 0 Abortions: Spontaneous or Elective: 1 Number of Living Children: 0 - Gestational Age Gestational Age by JONATHAN (wks/days): 40 Weeks and 0 Days - History Comment: demise at 31 weeks in 2019, vag delivery, depression Review of Systems - Review of Systems Constitutional: No problems Breast: No problems ENT: No problems Cardiovascular: No problems Respiratory: No problems Gastrointestinal: No problems Genitourinary: No problems Musculoskeletal: No problems Neurological: No problems Skin: No problems Vital Signs - Temperature Temperature: 97.2 F Temperature Source: Temporal Artery Scan - Pulse Right Sitting Brachial Pulse Rate: 107 Pulse Assessment Method: Automatic Cuff - Respirations Respiratory Rate: 18 Oxygen Delivery Method: Room Air O2 Sat by Pulse Oximetry: 99 - Blood Pressure Right Arm Sitting Blood Pressure: 117/73 Blood Pressure Mean: 87 Blood Pressure Source: Automatic Cuff Medical Screen Scoring - Cervical Exam Dilation (cm): 2.5 Effacement (%): 50 Station: -2 Membranes: Intact - Assessment - Baby A Baseline FHR: 135 Heart Rate - NICHD Category: Category I (Normal) NST: Reactive Physician Notification - Physician Notified Physician Notified Date: 04/17/23 Physician Notified Time: 17:00 Physician: Celso Lucas Order Received: Yes - Notification Comment Comment: dc home. Call to establish appt first thing tomorrow morning. pt verbalized understanding. Maternal Triage Index - Maternal Triage Index Presenting for scheduled procedure w/no complaint: No - Stat/Priority 1 Stat Priority 1: No - Urgent/Priority 2 Urgent Priority 2: No - Prompt/Priority 3 Prompt Priority 3: No - Non-Urgent/Priority 4 Non-Urgent Priority 4: Yes Criteria Met for Priority 4: cramping. no cervical change. NST reactive. CBC drawn today for hx low hgb. Pt to call for appt tomorrow morning and to plan for delivery. ( limited pnc) Disposition - Disposition OB Disposition: Discharge to home Discharge Date: 04/17/23 Discharge Time: 17:17 I agree with the RN Medical Screening Exam: Yes Physician's MSE Comment: I have neither seen nor examined the patient. Case reviewed; plan agreed upon as documented in EMR&OBIX.: Yes Diagnosis: RELATED CONDITIONS, UNSPECIFIED, THIRD TRIMESTER
== END 2023-04-17 17:28 | disposition home or self-care (01) ==
LOC: FBPOP 15:44
PROVIDERS: ATTEND Obstetrics & Gynecology
DX: O26.93 Pregnancy related conditions, unspecified, third trimester (principal); Z3A.40 40 weeks gestation of pregnancy
CPT/HCPCS: 59025; 85025; G0463; 99213

== ENCOUNTER 2023-04-22 17:25 | Inpatient (IN) | payer OTHER ==
[2023-04-22] MEDS ORDERED: LIDOCAINE 0.5% (PF) 5 MG/ML (50 ML SDV) SQ PRN (19:06)
[2023-04-22] MEDS ORDERED: CARBOPROST TROMETHAMINE 250 MCG/ML 1 ML AMP IM PRN (19:06)
[2023-04-22] MEDS ORDERED: OXYTOCIN 10 UNIT/ML 1 ML VIAL IM PRN (19:06)
[2023-04-22] MEDS ORDERED: METHYLERGONOVINE 0.2 MG/ML 1 ML AMP IM PRN (19:06)
[2023-04-22] MEDS ORDERED: TERBUTALINE 1 MG/ML VIAL SQ PRN (19:06)
[2023-04-22] MEDS ORDERED: miSOPROStoL 200 MCG TAB PO PRN (19:06)
[2023-04-22] MEDS ORDERED: PENICILLIN G POTASSIUM 5,000,000 UNIT in DEXTROSE 5% IN WATER 100 ML IVPB STA ×2 (19:11)
[2023-04-22] MEDS ORDERED: TRANEXAMIC 1,000 MG/100ML-NACL 1,000 MG in EMPTY BAG 1 BAG IV PRN (19:11)
[2023-04-22] MEDS: LACTATED RINGERS 1,000 ML IV SCH (19:25)
[2023-04-22] MEDS ORDERED: fentaNYL (PF) 50 MCG/ML 5 ML AMP ONE (20:26)
[2023-04-22] MEDS ORDERED: ROPIVACAINE 5 MG/ML 20 ML AMPULE ONE (20:26)
[2023-04-22] MEDS ORDERED: SODIUM CHLORIDE 0.9% 100 ML BAG ONE (20:26)
--- NOTE | 2023-04-22 21:24 | P.HPOB ---
History of Present Illness H&P Date: 04/22/23 Chief Complaint: 40+ weeks, early active labor, no local care The patient is a 22-year-old 2 para 0100 admitted at 40+ weeks as established by a 13+ week ultrasound. She presents at this time in early active labor with cervical change from 4-5 cm while in triage. She first presented to our triage unit last week with no local care having had some scattered care through the [facility] for unclear reasons. She did have a 13 week dating ultrasound done through their system. She had labs drawn through that system as well but apparently never had RhoGAM given at 28 weeks secondary to lack of care. On labor and delivery, all signs reassuring with a category 1 heart rate tracing. Group B strep status is unknown. I did see her once in my office last week at which time she was scheduled for induction later this week. Obstetrical history: 2 para 0100 with a history of a mid second trimester demise with a normal vaginal delivery. labs demonstrated a blood type of AB- with a negative antibody screen. Rubella status is immune. Remainder of the laboratory workup is apparently normal. One hour Glucola to my knowledge was not performed and group B strep status has not been obtained. Gynecologic history: Reportedly unremarkable with no history of any infections to include STDs. Review of Systems Review of systems is confined to history of present illness. Past Medical History Past Medical History: Asthma Additional Past Medical History / Comment(s): bronchitis, fx pinkie finger, "not sure which one". Patient states she has a irregular HR patient told to her by family physician. Never seen tube trailer filler for this HR History of Any Multi-Drug Resistant Organisms: None Reported Past Surgical History: No Surgical Hx Reported Past Anesthesia/Blood Transfusion Reactions: No Reported Reaction Past Psychological History: No Psychological Hx Reported Smoking Status: Never smoker Past Alcohol Use History: Rare - Past Family History Mother History Unknown: Yes Medications and Allergies Home Medications Medication Instructions Recorded Confirmed Type Ferrous Sulfate [Iron] 325 mg PO DAILY 04/10/23 04/17/23 History Vit No.179/Iron/Folic 1 each PO DAILY 04/10/23 04/17/23 History [ Tablet] Allergies Allergy/AdvReac Type Severity Reaction Status Date / Time No Known Allergies Allergy Verified 04/10/23 10:23 Exam Vital Signs Temp Pulse Resp BP Pulse Ox 04/22/23 19:08 97.4 F L 104 H 15 126/85 97 04/22/23 18:01 97.9 F 105 H 16 119/76 98 Intake and Output 04/22/23 04/22/23 04/22/23 06:59 14:59 22:59 Other: Weight 81.647 kg In general, this is a well-developed, well-nourished female in no acute distress. Her heart has a regular rhythm and rate without murmur. Her lungs appear to auscultation bilaterally in all mooney. Her abdomen is gravid, nondistended, has normal active bowel sounds, soft, nontender, and without any p alpable masses aside from uterine fundus. Her extremities without any cyanosis, clubbing, or edema and are nontender to palpation bilaterally. Digital cervical examination performed by the nursing staff demonstrates her cervix to be 6 cm dilated, approximately 80% effaced, with the vertex in presentation at -2 station. Amniotic membranes are intact. Assessment and Plan (1) Post-dates Current Visit: Yes Status: Acute Code(s): O48.0 - POST-TERM SNOMED Code(s): 55613329 (2) No care in current Current Visit: Yes Status: Acute Code(s): O09.30 - SUPRVSN OF PREG W INSUFFICIENT ANTENAT CARE, UNSP TRIMESTER SNOMED Code(s): 448849150 (3) Active labor at term Current Visit: Yes Status: Acute Code(s): WOK4425 - SNOMED Code(s): 10278165 Plan: The patient is admitted for active management of labor. Given her unknown group B strep status, antibiotic prophylaxis was started and she will continue to have membranes remained intact unless she has spontaneous rupture of membranes until antibiotics had been infused for 4 hours. She will have close maternal and surveillance and expectant management will be practiced. An epidural catheter has been placed for analgesia. medical staff services manager will be consulted following the delivery for no local care.
[2023-04-22 21:25] LABS: Anisocytosis Slight; Basophils # (A) 0.1 k/uL (0-0.2); Basophils % (A) 1 %; Eosinophils # (A) 0.2 k/uL (0-0.7); Eosinophils % (A) 2 %; HCT 40.1 % (34.0-46.0); HGB 12.9 gm/dL (11.4-16.0); Lymphocytes # (A) 1.3 k/uL (1.0-4.8); Lymphocytes % (A) 11 %; MCH 28.8 pg (25.0-35.0); MCHC 32.1 g/dL (31.0-37.0); MCV 89.6 fL (80.0-100.0); Monocytes # (A) 0.7 k/uL (0-1.0); Monocytes % (A) 6 %; Neutrophils % (A) 78 %; Platelet Count 243 k/uL (150-450); RBC 4.47 m/uL (3.80-5.40); RDW 18.9 % (11.5-15.5); WBC 11.6 k/uL (3.8-10.6)
[2023-04-22] MEDS: PENICILLIN G POTASSIUM 2,500,000 UNIT in DEXTROSE 5% IN WATER 100 ML IVPB SCH ×2 (23:28)
[2023-04-23] MEDS ORDERED: OXYTOCIN 30 UNITS/500 ML NS 30 UNIT in SALINE 1 500ML.BAG IV SCH ×2 (01:00→04:45)
[2023-04-23] MEDS ORDERED: ZOLPIDEM 5 MG TAB PO PRN (04:34)
[2023-04-23] MEDS ORDERED: HYDROcodone/APAP 7.5-325MG 1 EACH TAB PO PRN (04:34)
[2023-04-23] MEDS ORDERED: HYDROCORTISONE 2.5% RECTAL CREAM 30 GM TUBE RECTAL PRN (04:34)
[2023-04-23] MEDS ORDERED: LANOLIN CREAM 5 GM TUBE TOPICAL PRN (04:34)
[2023-04-23] MEDS ORDERED: diphenhydrAMINE 25 MG CAP PO PRN (04:34)
[2023-04-23] MEDS ORDERED: HYDROcodone/APAP 5-325MG 1 EACH TAB PO PRN (04:34)
[2023-04-23] MEDS ORDERED: diphenhydrAMINE 50 MG CAP PO PRN (04:34)
[2023-04-23] MEDS ORDERED: diphenhydrAMINE 50 MG/ML 1 ML VIAL IVP PRN ×2 (04:34)
[2023-04-23] MEDS ORDERED: BENZOCAINE/MENTHOL SPRAY 1 GM/SPRAY AEROSOL TOPICAL PRN (04:34)
[2023-04-23] MEDS ORDERED: SIMETHICONE 80 MG CHEWABLE PO PRN (04:34)
[2023-04-23] MEDS ORDERED: ACETAMINOPHEN TAB 325 MG TAB PO PRN (04:34)
--- NOTE | 2023-04-23 04:38 | P.PROBDLV ---
Vaginal Delivery Note - . Vaginal Delivery Note: The patient is a 22-year-old 2 para 0100 admitted at 40+ weeks as determined by 13 week ultrasound. She is admitted in early active labor with all signs reassuring. She has had scattered care primarily through the [facility] and presented to our triage last week at which time I accepted her into my practice in order to expedite her delivery. Her has reportedly been uncomplicated aside from the minimal care. She is Rh- and did not apparently received RhoGAM at 28 weeks. She did not undergo Glucola either. On labor and delivery, all signs reassuring with a category 1 heart rate tracing. As her group B strep status is unknown, antibiotic prophylaxis was started. She was laboring fairly slowly through the active phase of labor which allowed us to get through 4 hours post infusion of antibiotics prior to performing artificial rupture of membranes for clear fluid. She additionally had had an epidural catheter placed for analgesia. She required some Pitocin augmentation but then didn't progress to complete and pushed over the course of approximately 1-1/2 hours to a normal spontaneous vaginal delivery of a viable 8 lbs. 0 oz. baby girl with Apgars of 9 at 1 minute and 9 at 5 minutes delivered in the direct occiput anterior position. The placenta was delivered spontaneously, intact, and grossly normal with a grossly normal, marginally inserted three-vessel cord. There was a second-degree midline laceration with moderate extension up the right labia which was repaired continuously in standard fashion using 3-0 chromic catgut without difficulty. Estimated blood loss for the case approximate 200 mL. There were no complications. All sponge, instrument, and needle counts were correct. Both mother and are resting comfortably in recovery.
[2023-04-23] MEDS: IBUPROFEN 600 MG TAB PO PRN ×2 (05:25→12:57)
[2023-04-23] MEDS: LACTATED RINGERS 1,000 ML IV SCH (05:53)
[2023-04-23] MEDS: PENICILLIN G POTASSIUM 2,500,000 UNIT in DEXTROSE 5% IN WATER 100 ML IVPB SCH ×2 (07:04)
[2023-04-23] MEDS: SENNOSIDES-DOCUSATE SODIUM 1 EACH TAB PO SCH ×2 (08:46→20:40)
[2023-04-24 00:46] VITALS: RESP 16
[2023-04-24 08:39] VITALS: BP 105/64; PULSE 79; TEMP 97.9
[2023-04-24] MEDS: SENNOSIDES-DOCUSATE SODIUM 1 EACH TAB PO SCH (08:39)
--- NOTE | 2023-04-24 10:30 | P.PNOBGVD ---
Subjective - Subjective Principal diagnosis: s/p normal vaginal delivery Interval history: The patient is doing well this morning and had no acute events overnight. She has no complaints this morning. She reports minimal lochia, passing flatus, voiding without difficulty, ambulating, and eating/drinking without nausea or vomiting. She is hoping to breastfeed her infant but has not tried to nurse today. She also supplemented with formula last night. She denies chest pain, shortness of breathing, fevers, or chills overnight. She denies pain or swelling in the legs. Patient reports: Reports appetite normal, Reports voiding normally, Reports pain well controlled, Reports ambulating normally : doing well Objective - Latest Vital Signs Latest vital signs: Vital Signs Temp Pulse Resp BP Pulse Ox 04/24/23 08:00 97.9 F 79 16 105/64 97 04/24/23 00:00 98.5 F 77 16 112/71 04/23/23 16:00 98.2 F 81 18 100/63 96 04/23/23 12:00 97.8 F 67 18 109/72 96 - Exam Extremities: Present: normal Abdomen: Present: normal appearance, soft Uterus: Present: normal, firm Assessment and Plan Assessment: 22 year old now PPD#1 s/p Plan: having feeding difficulties. Patient desires discharge home today if infant is discharged.
--- NOTE | 2023-04-24 10:32 | P.DS ---
Providers Date of admission: 04/22/23 19:05 Expected date of discharge: 04/24/23 Attending physician: Celso Lucas Primary care physician: Stated None Hospital Course: 22 year old now PPD#1 s/p . The patient is doing well this morning and had no acute events overnight. She has no complaints this morning. She reports minimal lochia, passing flatus, voiding without difficulty, ambulating, and eating/drinking without nausea or vomiting. doing well at bedside. She denies chest pain, shortness of breathing, fevers, or chills overnight. She denies pain or swelling in the legs. restrictions are reviewed with the patient including pelvic rest for 6 weeks. The patient is encouraged to call the office if she experiences any heavy bleeding, foul-smelling discharge, breast complaints, or any if she has any other concerns. She will follow up in the office with Dr. Lucas in 6 weeks for exam. All questions are answered. Assessment: 22 year old now PPD#1 s/p Patient Condition at Discharge: Good Plan - Discharge Summary Discharge Rx Participant: No New Discharge Prescriptions: No Action Vit No.179/Iron/Folic [ Tablet] 1 each PO DAILY Ferrous Sulfate [Iron] 325 mg PO DAILY Discharge Medication List Ferrous Sulfate [Iron] 325 mg PO DAILY 04/10/23 [History] Vit No.179/Iron/Folic [ Tablet] 1 each PO DAILY 04/10/23 [History] Follow up Appointment(s)/Referral(s): Celso Lucas MD [STAFF PHYSICIAN] - 6 Weeks ( exam) Patient Instructions/Handouts: Depression (DC), Perineal Care (DC), Bleeding (DC), How to Increase Your Milk Supply (DC), How to Tell if Your Baby is Getting Enough Breast Milk (DC) Activity/Diet/Wound Care/Special Instructions: Pelvic rest for 6 weeks Discharge/Stand Alone Forms: Community Resources, Outpatient Counseling Discharge Disposition: HOME SELF-CARE
== END 2023-04-24 13:00 | disposition home or self-care (01) | DRG 560 ==
LOC: FBPOP 17:25 → 4FBP 19:05
PROVIDERS: ADMIT Obstetrics & Gynecology; ATTEND Obstetrics & Gynecology
PROC: 10E0XZZ Delivery of Products of Conception, External Approach (ICD-10-PCS; principal; 2023-04-23)
PROC: 10907ZC Drainage of Amniotic Fluid, Therapeutic from Products of Conception, Via Natural or Artificial Opening (ICD-10-PCS; 2023-04-23)
PROC: 0KQM0ZZ Repair Perineum Muscle, Open Approach (ICD-10-PCS; 2023-04-23)
PROC: 00HU33Z Insertion of Infusion Device into Spinal Canal, Percutaneous Approach (ICD-10-PCS; 2023-04-23)
PROC: 3E0R3BZ Introduction of Anesthetic Agent into Spinal Canal, Percutaneous Approach (ICD-10-PCS; 2023-04-23)
DX: O48.0 Post-term pregnancy (principal); O70.1 Second degree perineal laceration during delivery; J45.909 Unspecified asthma, uncomplicated; O99.52 Diseases of the respiratory system complicating childbirth; Z3A.40 40 weeks gestation of pregnancy; Z37.0 Single live birth
CPT/HCPCS: 84112; 85025; 86850; 86900; 86901; 99213

== ENCOUNTER 2024-10-30 16:16 | Outpatient (CLI) | payer OTHER ==
[2024-10-30 17:29] VITALS: BP 117/75; PULSE 109; RESP 16; TEMP 98.4
--- NOTE | 2024-11-16 11:35 | P.MSEPDOC ---
Presenting Problems - Arrival Data Date of Arrival on Unit: 10/30/24 Time of Arrival on Unit: 16:16 Mode of Transport: Ambulatory - Complaint OB-Reason for Admission/Chief Complaint: Possible Onset of Labor Comment: abdominal cramping since this afternoon. Medical History - Information : 3 Para: 2 Term: 1 : 1 Abortions: Spontaneous or Elective: 0 Number of Living Children: 1 - Gestational Age Gestational Age by JONATHAN (wks/days): 39 Weeks and 3 Days Review of Systems - Review of Systems Constitutional: No problems Breast: No problems ENT: No problems Cardiovascular: No problems Respiratory: No problems Gastrointestinal: No problems Genitourinary: No problems Musculoskeletal: No problems Neurological: No problems Skin: No problems Vital Signs - Temperature Temperature: 98.4 F Temperature Source: Temporal Artery Scan - Pulse Pulse Oximetery Pulse Rate: 109 Pulse Assessment Method: Pulse Oximetry - Respirations Respiratory Rate: 16 Oxygen Delivery Method: Room Air O2 Sat by Pulse Oximetry: 99 - Blood Pressure Right Arm Blood Pressure: 117/75 Blood Pressure Mean: 89 Blood Pressure Source: Automatic Cuff Medical Screen Scoring - Cervical Exam Dilation (cm): 1.5 - Uterine Contractions Intensity: Absent - Assessment - Baby A Baseline FHR: 145 Heart Rate - NICHD Category: Category I (Normal) NST: Reactive Physician Notification - Physician Notified Physician Notified Date: 10/30/24 Physician Notified Time: 16:49 Physician: Celso Lucas Order Received: Yes (d/c) Maternal Triage Index - Non-Urgent/Priority 4 Non-Urgent Priority 4: Yes Criteria Met for Priority 4: >37 weeks with c/o abdominal cramping, dilated to 1.5, thick and high. Disposition - Disposition OB Disposition: Discharge to home Discharge Date: 10/30/24 Discharge Time: 16:56 I agree with the RN Medical Screening Exam: Yes Physician's MSE Comment: I have neither seen nor examined the patient. Case reviewed; plan agreed upon as documented in EMR&OBIX.: Yes Diagnosis: RELATED CONDITIONS, UNSPECIFIED, THIRD TRIMESTER
== END 2024-10-30 16:56 | disposition home or self-care (01) ==
LOC: FBPOP 16:16
PROVIDERS: ATTEND Obstetrics & Gynecology
DX: O26.93 Pregnancy related conditions, unspecified, third trimester (principal); Z3A.39 39 weeks gestation of pregnancy
CPT/HCPCS: 59025; G0463; 99213

== ENCOUNTER 2024-11-02 16:48 | Inpatient (IN) | payer OTHER ==
[2024-11-02] MEDS ORDERED: TERBUTALINE 1 MG/ML VIAL SQ PRN (17:47)
[2024-11-02] MEDS ORDERED: miSOPROStoL 200 MCG TAB RECTAL PRN (17:47)
[2024-11-02] MEDS ORDERED: CARBOPROST TROMETHAMINE 250 MCG/ML 1 ML AMP IM PRN (17:47)
[2024-11-02] MEDS ORDERED: miSOPROStoL 200 MCG TAB PO PRN (17:47)
[2024-11-02] MEDS ORDERED: OXYTOCIN 10 UNIT/ML 1 ML VIAL IM PRN (17:47)
[2024-11-02] MEDS ORDERED: METHYLERGONOVINE 0.2 MG/ML 1 ML AMP IM PRN (17:47)
[2024-11-02] MEDS ORDERED: TRANEXAMIC 1,000 MG/100ML-NACL 1,000 MG in EMPTY BAG 1 BAG IV PRN (17:47)
[2024-11-02 18:00] LABS: Basophils % (A) 0 %; Eosinophils # (A) 0.1 k/uL (0-0.7); Eosinophils % (A) 1 %; HCT 35.1 % (34.0-46.0); HGB 11.2 gm/dL (11.4-16.0); Hypochromasia Slight; Lymphocytes # (A) 1.1 k/uL (1.0-4.8); Lymphocytes % (A) 11 %; MCH 26.9 pg (25.0-35.0); MCHC 31.9 g/dL (31.0-37.0); MCV 84.5 fL (80.0-100.0); Mean Platelet Volume 7.9; Monocytes # (A) 0.5 k/uL (0-1.0); Monocytes % (A) 5 %; Neutrophils # (A) 7.9 k/uL (1.3-7.7); Neutrophils % (A) 80 %; Platelet Count 304 k/uL (150-450); RBC 4.15 m/uL (3.80-5.40); WBC 9.9 k/uL (3.8-10.6)
[2024-11-02] MEDS: LACTATED RINGERS 500 ML IV SCH ×2 (18:03→18:26)
--- NOTE | 2024-11-02 18:56 | P.HPOB ---
History of Present Illness H&P Date: 11/02/24 Chief Complaint: Uterine contractions Ms. Barry is a 23 year old at 39 weeks and 6 days with EDC of 11/03/2024 by 9 week US who presents in active labor. SROM occurred shortly after admission at 1829 revealing clear amniotic fluid. Her has been essentially uncomplicated. Of note, she has had limited care. The fetus is estimated to weight approximately 7 pounds based on a 38 week US. Obstetric history: 1 FTVD (8#, female), 1 stillbirth due to a cord accident in mid-second trimester work-up: blood type AB positive, antibody screen negative, rubella immune, VDRL non-reactive, HBsAg negative, HIV negative, HCV Ab non-reactive, gonorrhea negative, chlamydia negative. 1 hour GTT never completed. Past Medical History Past Medical History: Asthma Additional Past Medical History / Comment(s): bronchitis, fx pinkie finger, "not sure which one". Patient states she has a irregular HR patient told to her by family physician. Never seen barker peeler for this HR History of Any Multi-Drug Resistant Organisms: None Reported Past Surgical History: No Surgical Hx Reported Past Anesthesia/Blood Transfusion Reactions: No Reported Reaction Past Psychological History: No Psychological Hx Reported Smoking Status: Never smoker Past Alcohol Use History: Rare Additional Past Alcohol Use History / Comment(s): "Only drink once a week to once a month", reports varies on situation. Past Drug Use History: Marijuana, Prescription Drug Abuse - Past Family History Mother History Unknown: Yes Medications and Allergies Home Medications Medication Instructions Recorded Confirmed Type Ferrous Sulfate [Iron] 325 mg PO DAILY 04/10/23 11/02/24 History Vit No.179/Iron/Folic 1 each PO DAILY 04/10/23 11/02/24 History [ Tablet] Allergies Allergy/AdvReac Type Severity Reaction Status Date / Time No Known Allergies Allergy Verified 11/02/24 17:05 Exam Vital Signs Temp Pulse Resp BP Pulse Ox 11/02/24 17:04 97.1 F L 109 H 16 107/70 98 Intake and Output 11/02/24 11/02/24 11/02/24 06:59 14:59 22:59 Other: Weight 77.111 kg Focused physical exam is performed. This is a healthy-appearing in no apparent distress. Breathing is non-labored. Abdomen is gravid and non-tender. Cervical exam is 8cm per OB RN. SROM occurred at 1829 revealing clear amniotic fluid. Extremities non-tender and non-edematous. heart tones are Category I and tocometer is graphing contractions every 2-4 minutes. Results Result Diagrams: 11/02/24 17:45 Abnormal Lab Results - Last 24 Hours (Table) 11/02/24 Range/Units 17:45 Hgb 11.2 L (11.4-16.0) gm/dL Neutrophils # 7.9 H (1.3-7.7) k/uL Assessment and Plan Assessment: 23 year old at 39 weeks and 6 days presenting in active labor Plan: Admit, expectant management, epidural prn, anticipate vaginal delivery
[2024-11-02] MEDS: OXYTOCIN 30 UNITS/500 ML NS 30 UNIT in SALINE 1 500ML.BAG IV SCH (20:26)
[2024-11-02] MEDS: LIDOCAINE 0.5% (PF) 5 MG/ML (50 ML SDV) SQ PRN (21:36)
[2024-11-02] MEDS ORDERED: diphenhydrAMINE 25 MG CAP PO PRN (21:38)
[2024-11-02] MEDS ORDERED: ZOLPIDEM 5 MG TAB PO PRN (21:38)
[2024-11-02] MEDS ORDERED: HYDROCORTISONE 2.5% RECTAL CREAM 30 GM TUBE RECTAL PRN (21:38)
[2024-11-02] MEDS ORDERED: diphenhydrAMINE 50 MG/ML 1 ML VIAL IVP PRN ×2 (21:38)
[2024-11-02] MEDS ORDERED: diphenhydrAMINE 50 MG CAP PO PRN (21:38)
[2024-11-02] MEDS ORDERED: SIMETHICONE 80 MG CHEWABLE PO PRN (21:38)
[2024-11-02] MEDS ORDERED: LANOLIN CREAM 1 GM TUBE TOPICAL PRN (21:38)
--- NOTE | 2024-11-02 21:38 | P.PROBDLV ---
Vaginal Delivery Note - . Vaginal Delivery Note: DATE OF SERVICE: 11/02/2023 PROCEDURE: Normal Vaginal Delivery ATTENDING: Dr. Sia Valdez MD ESTIMATED BLOOD LOSS: 100 mL FINDINGS: VMI, Apgars 9/9. Weight pending. PROCEDURE: Ms. Barry is a 23 year old at 24 weeks presenting to labor and delivery in active labor. The has been essentially uncomplicated. For further details, please review the admitting H&P. SROM occurred at 183 revealing clear amniotic fluid. The patient received epidural anesthesia per her request. Pitocin augmentation was started. The patient was completely dilated at 2037. She pushed effectively with Category II heart tones. A viable male was delivered at 2118. The was placed on the maternal abdomen and bulb suctioned. The was noted to be spontaneously crying. Cord was clamped and cut after a 60-second delay. The was handed off to the pediatric team. Placenta was delivered whole with gentle cord traction at 2120. Oxytocin was started to facilitate uterine tone. Uterine fundus was found to be firm and below the umbilicus upon fundal massage. Thorough examination of the cervix, vagina, periurethral area, and perineum revealed a small second degree perineal laceration. The perineum was infiltrated with lidocaine and repaired in the usual fashion with 2-0 Vicryl. The patient is stable and allowed to begin the bonding process.
[2024-11-02] MEDS: BENZOCAINE/MENTHOL SPRAY 1 GM/SPRAY AEROSOL TOPICAL PRN (21:53)
[2024-11-03] MEDS: ACETAMINOPHEN TAB 500 MG TAB PO SCH (02:28)
[2024-11-03] MEDS: IBUPROFEN 800 MG TAB PO SCH (02:28)
[2024-11-03 06:52] LABS: Basophils % (A) 0 %; Eosinophils % (A) 0 %; HCT 32.8 % (34.0-46.0); HGB 10.5 gm/dL (11.4-16.0); Hypochromasia Slight; Lymphocytes # (A) 1.1 k/uL (1.0-4.8); Lymphocytes % (A) 8 %; MCH 27.2 pg (25.0-35.0); MCHC 32.1 g/dL (31.0-37.0); MCV 84.8 fL (80.0-100.0); Mean Platelet Volume 8.1; Monocytes # (A) 0.7 k/uL (0-1.0); Monocytes % (A) 5 %; Neutrophils # (A) 12.7 k/uL (1.3-7.7); Neutrophils % (A) 85 %; Platelet Count 256 k/uL (150-450); RBC 3.87 m/uL (3.80-5.40); RDW 14.9 % (11.5-15.5); WBC 14.9 k/uL (3.8-10.6)
[2024-11-03] MEDS: SENNOSIDES-DOCUSATE SODIUM 1 EACH TAB PO SCH (07:32)
--- NOTE | 2024-11-03 08:34 | P.PNOBGVD ---
Subjective - Subjective Patient reports: Reports appetite normal, Reports voiding normally, Reports pain well controlled, Reports ambulating normally : doing well Objective - Latest Vital Signs Latest vital signs: Vital Signs Temp Pulse Resp BP Pulse Ox 11/03/24 07:55 98.1 F 92 20 123/70 98 11/03/24 04:00 97.8 F 98 17 106/72 97 11/02/24 23:23 97.8 F 91 16 115/72 100 11/02/24 23:20 103 H 16 116/73 100 11/02/24 23:05 91 16 116/72 100 11/02/24 22:50 97.6 F 73 16 105/72 97 11/02/24 22:35 83 16 106/72 97 11/02/24 22:20 96.8 F L 83 16 105/69 98 11/02/24 22:05 97.0 F L 76 16 112/73 97 11/02/24 21:50 97.0 F L 83 16 104/63 96 11/02/24 21:35 97.2 F L 83 16 107/72 97 11/02/24 17:04 97.1 F L 109 H 16 107/70 98 Intake and Output 11/02/24 11/03/24 11/03/24 22:59 06:59 14:59 Intake Total 168.833 Output Total 100 125 Balance 68.833 -125 Intake: Intake, IV Titration 168.833 Amount Oxytocin 30 Units/500 ml 168.833 Ns 30 unit In Saline 1 500ml.bag @ Per Protocol IV .Q0M [facility] Rx#:[id number] Output: Output, Estimated Blood 100 Loss Amount Output, Quantitative 125 Blood Loss Other: # Voids 1 Weight 77.111 kg - Exam Extremities: Present: normal Abdomen: Present: normal appearance, soft Uterus: Present: normal, firm - Labs Labs: Abnormal Lab Results - Last 24 Hours (Table) 11/02/24 11/03/24 Range/Units 17:45 06:30 WBC 14.9 H (3.8-10.6) k/uL Hgb 11.2 L 10.5 L (11.4-16.0) gm/dL Hct 32.8 L (34.0-46.0) % Neutrophils # 7.9 H 12.7 H (1.3-7.7) k/uL Assessment and Plan (1) Normal spontaneous vaginal delivery Current Visit: No Status: Acute Code(s): O80 - ENCOUNTER FOR FULL-TERM UNCOMPLICATED DELIVERY SNOMED Code(s): 42800237 Plan: Continue routine care. I would anticipate discharge home tomorrow pending no complications. I have encouraged the patient to ambulate in the hallways routinely.
--- NOTE | 2024-11-03 14:32 | P.CN ---
Psychiatric Consult - . Consult date: 11/03/24 Consult:: 11/03/24 14:16 IDENTIFYING DATA: This patient is a 23-year-old female who recently delivered vaginally, living at home with boyfriend and 2 children, 1 whom they share together REASON FOR REFERRAL: Psychiatry was consulted for high PPD score (13) HISTORY OF PRESENT ILLNESS: The patient presented to the hospital in active labor, ultimately delivering her son yesterday. Patient scored high on her EPDS. Seen and evaluated with family at bedside. Patient was agreeable to speak to designer writer with family in the room. She reports predominant depressive symptoms for several weeks described as low mood and energy, feeling tired, anhedonia, increase in appetite and mood swings. She vehemently denied any suicidal ideations but does report stress related to having to care for her children. Mother expressed that patient is quiet in nature at baseline however endorses a strong network and being ultimately a good mother. Mother states that patient lost her first baby and ended up being hospitalized after this. Patient and her mother both was unsure of what medications was trialed at that time however they reported adverse reactions described as shaking that impacted her day-to-day. Patient is living with her child's father and they are looking to move to a different location soon. Mother states that she will stay with them and help out in the interim. After long conversation, patient was agreeable with trialing Zoloft for depression as this is the most well studied antidepressant for patient's and it is safe to use in breast-feeding mothers. At this time patient denies any suicidal or homical ideations, intent or plan. Patient denies any auditory, visual hallucinations and denies any paranoia or delusions. 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 Patient denies being on any psychiatric medications. Patient was hospitalized back in 2019. Patient denies any psychiatric outpatient follow-up. Patient denies any history of suicide attempts in the past. PAST MEDICAL HISTORY: asthma. ALLERGIES: as per EMR. CHEMICAL DEPENDENCY HISTORY: as per HPI. Patient does have a history of using psychedelics caused auditory and visual hallucinations per family. She no longer uses any substances. FAMILY PSYCHIATRIC/SUBSTANCE USE HISTORY: Denies SOCIAL HISTORY: Patient has 2 children with her child's father and they also live with the father's other son from a previous relationship. She completed school up to the 11th grade. She is unemployed. MENTAL STATUS EXAM: General Appearance: Patient appears to be stated age is alert, and cooperative. Patient appears to have fair hygiene and grooming wearing hospital gown with poor eye contact. Behavior: Patient is calmly lying in bed without any agitated behavior. Speech: Patient's speech is fluent and nonpressured. Mood/Affect: Patient reports their mood is "all right", affect is flat, nonreactive Suicidality/Homicidality: Patient denies having any suicidal or homicidal ideation intent or plan. Perceptions: Patient denies any visual hallucinations and denies any auditory hallucinations Though content/process: There is no evidence of any delusional thought content and thought process is linear and logical. Memory and concentration: AOX3, grossly intact for the purposes of this session. Can spell "WORLD" backwards Judgment and insight: Fair IMPRESSIONS: Major depressive disorder with peripartum onset PLAN: -At this time patient DOES NOT meet criteria for inpatient psychiatric admission. -Would recommend the following medication changes/additions: Patient agreeable with starting Zoloft 25 mg daily with a goal to increase this outpatient. Risks, benefits and alternatives were discussed with the patient. Patient prefers a Anabapt[employer] counselor and a list of resources in this area was provided to patient -button station worker to provide patient with outpatient mental health/psychiatry resources for appropriate follow up upon discharge -Communicated plan to patient's nurse -Psychiatry will sign off at this time -Please contact with any questions.
[2024-11-03] MEDS: SERTRALINE 25 MG TAB PO SCH (15:50)
[2024-11-03 23:58] VITALS: RESP 16
[2024-11-04 08:30] VITALS: BP 107/61; PULSE 67; TEMP 97.7
--- NOTE | 2024-11-04 08:40 | P.DS ---
Providers Date of admission: 11/02/24 17:25 Expected date of discharge: 11/04/24 Attending physician: Celso Lucas Consults: 11/03/24 02:20 Consult Physician Routine Consulting Provider: Sylvain Reilly Consult Reason/Comments: High Depression score Do you want consulting provider notified?: Yes, Notify in am Primary care physician: Stated None - Discharge Diagnosis(es) (1) Normal spontaneous vaginal delivery Current Visit: No Status: Acute Hospital Course: Patient is a 23-year-old 3 para 1-1-0-1 admitted at 39-6/7 weeks as established by 9-week ultrasound. She is admitted with documented spontaneous rupture of membranes and early labor. Her was a been uncomplicated though she she has somewhat limited care. On labor and delivery, all signs are reassuring with a category 1 heart rate tracing. She had augmentation started after an epidural catheter was placed for analgesia. She made progress to complete and then pushed to a normal spontaneous vaginal delivery of a viable 8 pound 3 ounce baby girl with Apgars of 9 at 1 minute and 9 at 5 minutes. Her course was essentially unremarkable with vital signs remaining stable and her temperature was afebrile throughout. She did have a relatively elevated depression score and a completely flat affect throughout the entire labor and delivery process for which she had a psychiatric consultation performed. They recommended she be started on Zoloft 25 mg to be increased to 50 mg as an outpatient and arranged for outpatient follow-up. She was deemed stable for discharge on the morning of day #2 and was discharged to home to follow-up in the office in 6 weeks time routinely. Discharge instructions included calling for any significantly increased bleeding or foul-smelling lochia, significantly increased fever or abdominal pain, perineal complaints, breast complaints, or anything else that concerned her. She was additionally instructed to have nothing in the vagina for at least 6 weeks time to include intercourse. She understood her instructio ns and agrees to follow-up as noted above. Discharge medications included continued vitamins as she has opted to breast-feed. She was otherwise to use [id number] analgesic pain medications. She was additionally to take Zoloft 25 mg daily to be increased to 50 mg daily in the next several weeks per psychiatry. Maternal blood type is AB+ and rubella status is immune. Procedures: . Epidural analgesia #2. Pitocin augmentation #3. Normal spontaneous vaginal delivery #4. Repair of perineal laceration Patient Condition at Discharge: Stable Plan - Discharge Summary New Discharge Prescriptions: No Action Vit No.179/Iron/Folic [ Tablet] 1 each PO DAILY Ferrous Sulfate [Iron] 325 mg PO DAILY Discharge Medication List Ferrous Sulfate [Iron] 325 mg PO DAILY 04/10/23 [History] Vit No.179/Iron/Folic [ Tablet] 1 each PO DAILY 04/10/23 [History] Follow up Appointment(s)/Referral(s): Celso Lucas MD [STAFF PHYSICIAN] - 12/15/24 1:15 pm Discharge/Stand Alone Forms: Who Do I Call?, Community Resources, Outpatient Counseling Discharge Disposition: HOME SELF-CARE
== END 2024-11-04 12:56 | disposition home or self-care (01) | DRG 807 ==
LOC: FBPOP 16:48 → 4FBP 17:25
PROVIDERS: ADMIT Obstetrics & Gynecology; ATTEND Obstetrics & Gynecology
PROC: 10E0XZZ Delivery of Products of Conception, External Approach (ICD-10-PCS; principal; 2024-11-02)
PROC: 0KQM0ZZ Repair Perineum Muscle, Open Approach (ICD-10-PCS; 2024-11-02)
PROC: 4A1HXCZ Monitoring of Products of Conception, Cardiac Rate, External Approach (ICD-10-PCS; 2024-11-02)
DX: O99.344 Other mental disorders complicating childbirth (principal); Z37.0 Single live birth; O70.1 Second degree perineal laceration during delivery; Z3A.39 39 weeks gestation of pregnancy; Z56.0 Unemployment, unspecified; Z28.310 Unvaccinated for COVID-19; Z28.21 Immunization not carried out because of patient refusal; F32.9 Major depressive disorder, single episode, unspecified
CPT/HCPCS: 59025; 85025; 86850; 86900; 86901; 99213